=== PATIENT | female | born 1960 | race Caucasian/White ===

== ENCOUNTER → 2016-04-07 | Outpatient (CLI) | payer OTHER ==
[~2016-04-07] MED LIST: GADOBUTROL 10 ML VIAL IVP ONE
== END ==
LOC: FIMAGING 15:16
PROVIDERS: ATTEND Family Medicine
DX: R94.02 Abnormal brain scan (principal); G62.9 Polyneuropathy, unspecified
CPT/HCPCS: A9585

== ENCOUNTER → 2016-04-20 | Outpatient (CLI) | payer OTHER ==
[~2016-04-20] MED LIST changes: -GADOBUTROL 10 ML VIAL IVP ONE; +LIDOCAINE 1% 30 ML SDV ONE; +NA BICARBONATE 50 MEQ/50 ML VIAL ONE
[2016-04-20 10:32] LABS: CSF APPEARANCE CLEAR (CLEAR); CSF COLOR COLORLESS (COLORLESS); CSF SUPERNATANT COLORLESS (COLORLESS); PROTEIN, CSF 22 mg/dL (12-60); WBC, CSF 4 /mm3 (0-5)
[2016-04-21 13:57] LABS: VDRL CSF Negative (Negative)
[2016-04-22 09:32] LABS: ALBUMIN CSF 15.7 mg/dL (<=27.0); ALBUMIN SERUM 4470 mg/dL; CSF IGG INDEX 0.61 (<=0.85); IGG CSF 2.6 mg/dL (<=8.1); IGG SERUM 1230 mg/dL (767 - 1590); IGG/ALBUMIN CSF 0.17 (<=0.21); IGG/ALBUMIN SERUM 0.28 (<=0.40); SYNTHESIS RATE 1.32 mg/24 h (<=12)
[2016-04-22 12:29] LABS: INTERPRETATION 4 bands (<4); OLIGOCLONAL BANDING CSF 5 bands; OLIGOCLONAL BANDING SERUM 1 bands
[2016-04-22 14:53] LABS: LYMEAB IGG WESTERN BLOT None Detected bands; LYMEAB IGM WESTERN BLOT None Detected bands
[2016-04-22 21:52] LABS: 25-HYDROXY D2 <4.0 ng/mL; 25-HYDROXY D3 46 ng/mL; VITAMIN D 25-HYDROXY SERUM 46 ng/mL
== END ==
LOC: FIMAGING 07:40
PROVIDERS: ATTEND Psychiatry & Neurology Neurology
PROC: 009U3ZX Drainage of Spinal Canal, Percutaneous Approach, Diagnostic (ICD-10-PCS; principal; 2016-04-20)
DX: G35 Multiple sclerosis (principal)
CPT/HCPCS: 82306-90; 82784-90; 83916-90; 86592-90

== ENCOUNTER → 2017-04-24 | Outpatient (CLI) | payer OTHER ==
[~2017-04-24] MED LIST changes: +GADOBUTROL 10 ML VIAL IVP ONE; -LIDOCAINE 1% 30 ML SDV ONE; -NA BICARBONATE 50 MEQ/50 ML VIAL ONE
== END ==
LOC: FIMAGING 06:55
PROVIDERS: ATTEND Psychiatry & Neurology Neurology
DX: R90.82 White matter disease, unspecified (principal); M48.02 Spinal stenosis, cervical region; M53.82 Other specified dorsopathies, cervical region; M50.822 Other cervical disc disorders at C5-C6 level; G95.9 Disease of spinal cord, unspecified; M51.34 Other intervertebral disc degeneration, thoracic region; M53.84 Other specified dorsopathies, thoracic region
CPT/HCPCS: A9585

== ENCOUNTER → 2018-01-05 | Outpatient (CLI) | payer OTHER | LOC: FIMAGING 14:52 | PROVIDERS: ATTEND Family Medicine | DX: Z12.31 Encounter for screening mammogram for malignant neoplasm of breast (principal) ==